=== PATIENT | male | born 1955 | race African-American/Black ===

== ENCOUNTER 2016-08-20 20:29 | Emergency (ER) | payer OTHER ==
[~2016-08-20] VITALS: Ht 147.8 cm; Wt 61.8 kg
[2016-08-20] MEDS ORDERED: LEVOCETIRIZINE D5 M1 PO (22:00)
[2016-08-20] MEDS ORDERED: PATADAY2.5 ML OPH (22:00)
[2016-08-20] MEDS ORDERED: PERIOGARD473 ML PO (22:01)
[2016-08-20] MEDS ORDERED: POLYETHYLENE G255 GM PO (22:01)
[2016-08-20] MEDS ORDERED: DOXYCYCLINE HY100 M2 PO (22:01)
[2016-08-20] MEDS ORDERED: SF 5000 PLUS51 GM (22:02)
[2016-08-20] MEDS ORDERED: CALCIUM +D & M1 EACH PO (22:03)
[2016-08-20] MEDS ORDERED: SELENIUM SULFI120 M1 (22:04)
[2016-08-20] MEDS ORDERED: LEVOTHYROXINE25 MCG PO (22:04)
[2016-08-20] MEDS ORDERED: ALENDRONATE SOD70 M2 PO (22:04)
--- NOTE | 2016-08-20 22:12 | RADIOLOGY REPORT ---
EXAMINATION: XR FOREARM, RIGHT CLINICAL INFORMATION: Fall, right forearm abrasions COMPARISON: None TECHNIQUE: AP and lateral views of the right forearm were obtained. FINDINGS: The bones and soft tissues are normal. No fracture. Imaged portions of the elbow and wrist are unremarkable. No radiopaque foreign body. IMPRESSION: Normal right forearm.
--- NOTE | 2016-08-20 22:27 | ED MVC/FALL/TRAUMA COMPLAINT ---
History of Present Illness General Chief Complaint: Fall Stated Complaint: PT IS HERE FOR A FALL IN THE TUBE AND NEEDS AN RX Source: patient, old records, aid Exam Limitations: unable to give history, poor historian Vital Signs & Intake/Output Vital Signs & Intake/Output Vital Signs Date Time Temp Pulse Resp B/P Pulse O2 O2 Flow FiO2 Ox Delivery Rate 08/20 2233 84 16 118/70 96 Room Air 08/20 2036 97.5 78 18 120/80 97 Room Air Allergies Coded Allergies: NO KNOWN ALLERGIES (08/14/11) Reconcile Medications Alendronate Sodium 70 MG TABLET 1 TAB PO QW OSTEOPOROSIS (Reported) in the morning, at least 30 minutes before the first food, beverage, or medication of the day Calcium Carb/Vit D3/Minerals (Calcium +D & Minerals Chew Tab) 600 MG-400 TAB.CHEW 1 TAB PO BID SUPPLEMENT (Reported) Chlorhexidine Gluconate (Periogard) 0.12 % MOUTHWASH 15 ML PO BID UNK ( Reported) Doxycycline Hyclate 100 MG CAPSULE 1 CAP PO DAILY UNK (Reported) Levocetirizine Dihydrochloride 5 MG TABLET 1 TAB PO DAILY ALLERGIES (Reported ) Levothyroxine Sodium 25 MCG TABLET 1 TAB PO DAILY THYROID (Reported) Olopatadine HCl (Pataday) 0.2 % DROPS 1 GTT OPH DAILY UNK (Reported) Polyethylene Glycol 3350 17 GRAM/DOSE POWDER 17 GM PO DAILY CONSTIPATION ( Reported) Selenium Sulfide 2.5 % SHAMPOO UNK (Reported) Sodium Fluoride (Sf 5000 Plus) 1.1 % CREAM..G. 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 BUT NOTED NOT TO GRIMACE ON LIGHT PALPATION Triage Nurses Notes Reviewed? yes Onset: Just prior to arrival Duration: minute(s):, constant, continues in ED Timing: recent history Severity: mild Injuries/Fall Location: upper extremity, back Method of Injury: direct blow, fall Loss of Consciousness: no loss of consciousness No Modifying Factors: none Associated Symptoms: abrasion right forearm HPI: Prior to admission patient slipped in the bathtub falling onto his right forearm and back. He denies complaints of pain fever chills nausea vomiting diarrhea abdominal pain chest pain shortness breath headache dysuria bleeding. There is superficial abrasions to the right forearm. Past History Travel History Traveled to [place] past 21 day No Medical History Any Pertinent Medical History? 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 No Review of Systems Review of Systems Constitutional: Reports: no symptoms. Eyes: Reports: no symptoms. Ears, Nose, Throat, Mouth: Reports: no symptoms. Respiratory: Reports: no symptoms. Cardiovascular: Reports: no symptoms. Gastrointestinal/Abdominal: Reports: no symptoms. Genitourinary: Reports: no symptoms. Musculoskeletal: Reports: no symptoms. Skin: Reports: see HPI. Neurological/Psychological: Reports: no symptoms. All Other Systems: Reviewed and Negative Physical Exam Physical Exam General Appearance: well developed/nourished, alert, awake, anxious, comfortable Head: atraumatic, normal appearance Eyes: Bilateral: normal appearance, PERRL, EOMI. Ears, Nose, Throat, Mouth: hearing grossly normal, moist mucous membrane Neck: normal inspection, supple, full range of motion, normal alignment Respiratory: normal breath sounds, chest non-tender, no respiratory distress, quiet respiration, lungs clear Cardiovascular: regular rate/rhythm, normal peripheral pulses, norml femoral pulses equa Peripheral Pulses: 4+ carotid (R), 4+ carotid (L) Gastrointestinal: normal bowel sounds, soft, non-tender, no organomegaly Back: normal inspection, normal range of motion, no vertebral tenderness Extremities: normal range of motion, no ligament instability Neurologic/Psych: no motor/sensory deficits, awake, alert, oriented x 3, normal gait, normal mood/affect, 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 No Severe Sepsis Present: No Septic Shock Present: No Progress Differential Diagnosis: ext injury Plan of Care: xray wound care Diagnostic Imaging: Viewed by Me: Radiology Read. Discussed w/RAD: Radiology Read. Radiology Impression: no acute abnormality Departure Departure Time of Disposition: 2225 Disposition: HOME OR SELF CARE Condition: Stable Clinical Impression Primary Impression: Contusion of right forearm, initial encounter Qualifiers: Encounter type: initial encounter Qualified Code: S50.11XA - Contusion of right forearm, initial encounter Secondary Impressions: Fall at home Qualifiers: Encounter type: initial encounter Qualified Codes: W19.XXXA - Unspecified fall, initial encounter; Y92.099 - Unspecified place in other non- institutional residence as the place of occurrence of the external cause Referrals: ROHAN CHONG MD (PCP/Family) Departure Forms: Customer Survey General Discharge Information
[2016-08-20 22:34] VITALS: BP 118/70
== END 2016-08-20 22:35 ==
LOC: ERH 20:29
DX: S50.11XA Contusion of right forearm, initial encounter (principal); W18.2XXA Fall in (into) shower or empty bathtub, initial encounter; Y92.192 Bathroom in other specified residential institution as the place of occurrence of the external cause
CPT/HCPCS: 73090-RT